=== PATIENT | female | born 1945 | race Caucasian/White ===

== ENCOUNTER → 2016-05-08 | Outpatient (CLI) | payer BC ==
[~2016-05-08] MED LIST: ASPI325T39 PO; CALC500C70 PO; CYAN100020 PO; ESTR0.3T PO; MISCCAP80; MISCTAB88 PO; MULT-506 PO; OMEG10007 PO; PSYL55.43 PO; [UNRECOGNIZED DRUG - OTHER] PO
[2016-05-08 12:34] LABS: ALT/SGPT 28 U/L (12-78); BLOOD UREA NITROGEN 10 mg/dl (7-18); BUN/CREATININE RATIO 12.6 (10-20); CARBON DIOXIDE 27 mmol/L (21-32); CHLORIDE 106 mmol/L (98-107); CHOLESTEROL 233 mg/dl (0-200); CREATININE 0.81 mg/dl (0.60-1.20); GLUCOSE 86 mg/dl (70-99); POTASSIUM 3.9 mmol/L (3.5-5.1); SODIUM 142 mmol/L (136-145)
[2016-05-08 12:37] LABS: ALKALINE PHOSPHATASE 71 U/L (45-117); AST/SGOT 21 U/L (15-37); HDL CHOLESTEROL 78 mg/dl; LDL CHOLESTEROL CALCULATED 129 mg/dl; TRIGLYCERIDES 132 mg/dl (0-150); VERY LOW DENSITY LIPOPROT CALC 26 mg/dl
== END ==
LOC: C.LAB 11:27
PROVIDERS: ATTEND Family Medicine
DX: E78.5 Hyperlipidemia, unspecified (principal)

== ENCOUNTER → 2016-06-11 | Outpatient (CLI) | payer BC ==
--- NOTE | 2016-06-11 15:43 | DIAGNOSTIC IMAGING REPORT ---
CHEST 2 VIEWS ROUTINE CLINICAL HISTORY: Cough. COMPARISON STUDY: Rib series November 08, 2010. FINDINGS: Lung volumes are normal. Lungs are clear. There is no pneumothorax or pleural effusion. Pulmonary vascularity is normal. Cardiac size is normal. Mediastinal contours are normal. IMPRESSION: No acute cardiopulmonary findings. Electronically signed by: Ras Olivas M.D. 06/11/2016 3:41 PM Dictated Date/Time: 06/11/2016 3:40 PM
[2016-06-11 16:32] LABS: BASO % 0.8 %; BASO ABS # 0.06 K/uL (0-0.2); COMPLETE YES; HEMATOCRIT 44.2 % (37-47); IG% 0.1 %; LYMPH ABS # 2.65 K/uL (1.2-3.4); MEAN CORPUSCULAR HEMOGLOBIN 31.1 pg (25-34); MEAN CORPUSCULAR HGB CONC 35.3 g/dl (32-36); MEAN PLATELET VOLUME 8.9 fL (7.4-10.4); MONO % 6.5 %; NEUT % 52.6 %; PLATELET COUNT 236 K/uL (130-400); RED BLOOD COUNT 5.02 M/uL (4.2-5.4); WHITE BLOOD COUNT 7.58 K/uL (4.8-10.8)
== END | disposition home or self-care (01) ==
LOC: C.LAB1850 15:28
PROVIDERS: ATTEND Nurse Practitioner Family
DX: R05 Cough (principal)

== ENCOUNTER → 2016-06-14 | Outpatient (CLI) | payer BC | END | disposition home or self-care (01) | LOC: C.MAMM 10:15 | PROVIDERS: ATTEND Family Medicine | DX: M81.0 Age-related osteoporosis without current pathological fracture (principal); M85.851 Other specified disorders of bone density and structure, right thigh; M85.852 Other specified disorders of bone density and structure, left thigh ==

== ENCOUNTER → 2016-10-20 | Outpatient (CLI) | payer BC ==
--- NOTE | 2016-10-21 13:57 | MAMMOGRAPHY REPORT ---
BILATERAL DIGITAL SCREENING MAMMOGRAM TOMOSYNTHESIS WITH CAD: 10/20/2016 CLINICAL HISTORY: Routine screening. Patient has no complaints. TECHNIQUE: Breast tomosynthesis in addition to standard 2D mammography was performed. Current study was also evaluated with a Computer Aided Detection (CAD) system. COMPARISON: Comparison is made to exams dated: 10/20/2015 mammogram, 10/16/2014 mammogram, 10/15/2013 m ammogram, 05/23/2013 mammogram, 10/11/2012 mammogram - [facility], and 10/11/2011 mamm ogram. BREAST COMPOSITION: The tissue of both breasts is heterogeneously dense, which may obscure small mas ses. FINDINGS: There are benign calcifications scattered throughout both breasts. Stable asymmetry in the lateral left breast on the CC view. No new suspicious mass, architectural distortion or cluster of microcalcifications is seen. IMPRESSION: ACR BI-RADS CATEGORY 1: NEGATIVE There is no mammographic evidence of malignancy. A 1 year screening mammogram is recommended. The pa tient will receive written notification of the results. Approximately 10% of breast cancers are not detected with mammography. A negative mammographic report should not delay biopsy if a clinically suggestive mass is present. Pratibha Branch M.D. ay/:10/20/2016 16:20:06 [employer] Salesperson: Corina PRUITT)([place])([place]), [facility] letter sent: Normal 1/2 BI-RADS Code: ACR BI-RADS Category 1: Negative
== END | disposition home or self-care (01) ==
LOC: C.MAMM 10:50
PROVIDERS: ATTEND Surgery
DX: Z12.31 Encounter for screening mammogram for malignant neoplasm of breast (principal)

== ENCOUNTER → 2016-11-25 | Outpatient (CLI) | payer BC ==
[2016-11-25 12:17] LABS: HEMATOCRIT 44.7 % (37-47); MEAN CORPUSCULAR HEMOGLOBIN 30.3 pg (25-34); MEAN PLATELET VOLUME 9.2 fL (7.4-10.4); PLATELET COUNT 233 K/uL (130-400); RED BLOOD COUNT 5.02 M/uL (4.2-5.4); WHITE BLOOD COUNT 5.17 K/uL (4.8-10.8)
[2016-11-25 13:02] LABS: ALT/SGPT 29 U/L (12-78); AST/SGOT 19 U/L (15-37); BLOOD UREA NITROGEN 11 mg/dl (7-18); BUN/CREATININE RATIO 13.3 (10-20); CALCIUM 9.1 mg/dl (8.5-10.1); CARBON DIOXIDE 28 mmol/L (21-32); CHLORIDE 106 mmol/L (98-107); CREATININE 0.85 mg/dl (0.60-1.20); GLUCOSE 85 mg/dl (70-99); POTASSIUM 3.9 mmol/L (3.5-5.1); SODIUM 140 mmol/L (136-145)
[2016-11-25 13:05] LABS: ALKALINE PHOSPHATASE 61 U/L (45-117); CHOLESTEROL 233 mg/dl (0-200); CHOLESTEROL/HDL RATIO 3.2; HDL CHOLESTEROL 72 mg/dl; LDL CHOLESTEROL CALCULATED 133 mg/dl; TRIGLYCERIDES 142 mg/dl (0-150); VERY LOW DENSITY LIPOPROT CALC 28 mg/dl
== END | disposition home or self-care (01) ==
LOC: C.LABPBG 08:47
PROVIDERS: ATTEND Family Medicine
DX: Z00.00 Encounter for general adult medical examination without abnormal findings (principal); M81.0 Age-related osteoporosis without current pathological fracture; E78.5 Hyperlipidemia, unspecified; N81.6 Rectocele

== ENCOUNTER → 2017-02-01 | Outpatient (CLI) | payer BC ==
--- NOTE | 2017-02-01 15:58 | DIAGNOSTIC IMAGING REPORT ---
L-SPINE MIN 4 VIEWS ROUTINE HISTORY: Pain M85.80 [id number] Acute low back [id number] COMPARISON: None. FINDINGS: There is no fracture. Grade 1 anterolisthesis of L4 and L5. Moderate degenerative change of the low lumbar intervertebral disc spaces. No evidence for an acute compression deformity. IMPRESSION: Moderate degenerative change as described. Mild osteopenia. No acute process. The above report was generated using voice recognition software. It may contain grammatical, syntax or spelling errors. Electronically signed by: Luis Eduardo Son M.D. 02/01/2017 3:56 PM Dictated Date/Time: 02/01/2017 3:55 PM
== END | disposition home or self-care (01) ==
LOC: C.RAD 15:20
PROVIDERS: ATTEND Internal Medicine Rheumatology
DX: M54.5 Low back pain (principal); M85.80 Other specified disorders of bone density and structure, unspecified site

== ENCOUNTER 2017-03-26 12:44 | Emergency (ER) | payer BC ==
[~2017-03-26] VITALS: Ht 162.6 cm; Wt 69.2 kg
[2017-03-26 12:48] VITALS: TEMP 36.5; Ht 162.6 cm; Wt 69.2 kg
[2017-03-26 13:44] LABS: INFLUENZA B ANTIGEN Neg for Influ B (NEG)
[2017-03-26] MEDS ORDERED: IBAN150T7 PO (13:46)
[2017-03-26] MEDS ORDERED: PSYL0.524 PO (13:46)
[2017-03-26] MEDS ORDERED: ASPCH81X PO (13:46)
--- NOTE | 2017-03-26 13:48 | DIAGNOSTIC IMAGING REPORT ---
CHEST ONE VIEW PORTABLE CLINICAL HISTORY: FLU LIKE SYMPTOMS COMPARISON STUDY: Chest radiograph June 11, 2016. FINDINGS: Lung volumes are normal. Lungs are clear. There is no pneumothorax or pleural effusion. Cardiac size is normal. Mediastinal contours are normal. There is no evidence for pulmonary edema. IMPRESSION: No acute cardiopulmonary findings. Electronically signed by: Ras Olivas M.D. 03/26/2017 1:46 PM Dictated Date/Time: 03/26/2017 1:46 PM
[2017-03-26] MEDS ORDERED: MISCTAB26 PO (13:54)
[2017-03-26 14:47] VITALS: BP 117/74; PULSE 65; O2SAT 96
--- NOTE | 2017-03-26 14:50 | EMERGENCY ROOM VISIT NOTE ---
History Report prepared by Dann: Fabricio Garcia Under the Supervision of: Dr. Yan Hook M.D. First contact with patient: 13:06 Chief Complaint: SORETHROAT Stated Complaint: SORE THROAT,FEELS WEIRD,FUZZY FEELING History of Present Illness The patient is a 71 year old female who presents to the Emergency Room with complaints of an intermittent sorethroat that began several days ago. She notes that she is allergic to the influenza vaccine and has not received it. Eight days ago, the patient's symptoms began with rhinorrhea. They then progressed into her sorethroat with an increase to her baseline cough. Recently, her head has felt "fuzzy" and she has been increasingly tired. Yesterday she had a small amount of diarrhea to her bowel movement, but nothing astonishing. She took some NyQuil last night before she went to bed secondary to her having chills and felt better when she woke up. However, when she began to move around, her head began to feel fuzzy and she returned to her fatigued state. She denies any sick contacts. Pt denies LOC, headache, fevers, diaphoresis, visual changes, neck pain, chest pain, breathing difficulties, nausea, vomiting, abdominal pain , back pain, melena, hematochezia, urinary symptoms, numbness, weakness, lymphadenopathy, rash, or other complaints. Source of History: patient Onset: several days ago Position: throat Symptom Intensity: mild Quality: ache Timing: intermittent Associated Symptoms: + chills, + cough, + diarrhea, + fatigue Review of Systems See HPI for pertinent positives and negatives. A total of ten systems were reviewed and were otherwise negative. Past Medical & Surgical Medical Problems: (1) Appendectomy (2) Bronchitis (3) Hysterectomy (4) yeast infection Family History Omitted secondary to the patient's age. Social History Smoking Status: Never Smoker Alcohol Use: occasionally Marital Status: Housing Status: lives with family Occupation Status: employed Current/Historical Medications Scheduled Aspirin (Aspirin Chewable), 81 MG PO DAILY Calcium/Vitamin D (Os-Jimmy 500 Plus D), 1 TAB PO BID Cyanocobalamin (Vitamin B12), 1,000 MG PO DAILY Fish Oil (Dupont-3), 1 CAP PO TID Ibandronate Sodium (Ibandronate Sodium), 150 MG PO MONTHLY Misc Natural Products (Osteo Bi-Flex Triple Stre), 1 TAB PO DAILY Misc Natural Products (Ginkgo Biloba), 1 TAB PO BID Multivitamin (Multivitamin), 1 TAB PO DAILY Probiotic Product (Probiotic), 1 CAP DAILY Psyllium (Metamucil), 1 TBS PO BID Allergies Coded Allergies: Ciprofloxacin (Verified Allergy, Unknown, Liver issues, 12/01/13) Doxycycline (Verified Allergy, Unknown, UNK, 12/01/13) Loratadine (Verified Allergy, Unknown, UNK, 03/26/17) Nitrofurantoin (Verified Allergy, Unknown, SHORTNESS OF BREATH, COUGH, CHEST TIGHTNESS, 12/01/13) Tetracycline (Verified Allergy, Unknown, UNSURE, 03/26/17) Theophylline (Verified Allergy, Unknown, DROWSINESS, 03/26/17) Mometasone (Verified Adverse Reaction, Mild, NOSE BLEEDS, 12/01/13) Metronidazole (Verified Adverse Reaction, Unknown, UNK, 12/01/13) STATED " IT COATED MY TONGUE LAST COUPLE DAYS." Statins (Verified Adverse Reaction, Unknown, tingling hands, 12/01/13) Physical Exam Vital Signs Date Time Temp Pulse Resp B/P (MAP) Pulse Ox O2 Delivery O2 Flow Rate FiO2 03/26/17 14:47 65 18 117/74 96 Room Air 03/26/17 13:16 98 Room Air 03/26/17 12:48 36.5 88 18 135/81 96 Room Air Physical Exam GENERAL: Awake, alert, tired-appearing, in no distress HENT: Normocephalic, atraumatic. Oropharynx unremarkable. EYES: Normal conjunctiva. Sclera non-icteric. NECK: Supple. No nuchal rigidity. FROM. No JVD. RESPIRATORY: Clear to auscultation. CARDIAC: Regular rate, normal rhythm. Extremities warm and well perfused. Pulses equal. ABDOMEN: Soft, non-distended. No tenderness to palpation. No rebound or guarding. No masses. RECTAL: Deferred. MUSCULOSKELETAL: Chest examination reveals no tenderness. The back is symmetrical on inspection without obvious abnormality. There is no CVA tenderness to palpation. No joint edema. LOWER EXTREMITIES: Calves are equal size bilaterally and non-tender. No edema. No discoloration. NEURO: Normal sensorium. No sensory or motor deficits noted. SKIN: No rash or jaundice noted. Medical Decision & Procedures ER Provider Diagnostic Interpretation: Radiology results as stated below per my review and radiologist interpretation: CHEST ONE VIEW PORTABLE CLINICAL HISTORY: FLU LIKE SYMPTOMS COMPARISON STUDY: Chest radiograph June 11, 2016. FINDINGS: Lung volumes are normal. Lungs are clear. There is no pneumothorax or pleural effusion. Cardiac size is normal. Mediastinal contours are normal. There is no evidence for pulmonary edema. IMPRESSION: No acute cardiopulmonary findings. Electronically signed by: Ras Olivas M.D. 03/26/2017 1:46 PM Dictated Date/Time: 03/26/2017 1:46 PM Laboratory Results Test 03/26/17 12:55 03/26/17 13:45 Influenza Type A Antigen Neg for Influ A (NEG) Influenza Type B Antigen Neg for Influ B (NEG) Urine Color YELLOW Urine Appearance CLEAR (CLEAR) Urine pH 6.5 (4.5-7.5) Urine Specific Dennison 1.008 (1.000-1.030) Urine Protein NEG (NEG) Urine Glucose (UA) NEG (NEG) Urine Ketones NEG (NEG) Urine Occult Blood NEG (NEG) Urine Nitrite NEG (NEG) Urine Bilirubin NEG (NEG) Urine Urobilinogen NEG (NEG) Urine Leukocyte Esterase SMALL (NEG) Urine WBC (Auto) /hpf (0-5) Urine RBC (Auto) /hpf (0-4) Urine Hyaline Casts (Auto) /lpf (0-5) Urine Epithelial Cells (Auto) /lpf (0-5) Urine Bacteria (Auto) (NEG) Urine RBC 0-4 /hpf (0-4) Urine WBC 1-5 /hpf (0-5) Urine Epithelial Cells 0-5 /lpf (0-5) Urine Bacteria NEG (NEG) Laboratory results reviewed by la ED Course 1306: The patient was evaluated in room B6. A complete history and physical exam was performed. 1500: I reevaluated the patient. Discussed results and discharge instructions: She verbalized understanding and agreement. The patient is ready for discharge. Medical Decision Prior records/ancillary studies reviewed and summarized above. Nursing notes reviewed and agree them. Additional history obtained from . The patient's history was concerning for flu symptoms. Differential diagnosis: Etiologies such as influenza, UTI, metabolic, infection, electrolyte abnormalities, cardiac sources, intracerebral event, neurologic, as well as others were entertained. Physical examination: As above. Minor flulike symptoms present. ER treatment provided: No medication given. On reassessment the patient felt better. Diagnostics interpretation by me: The labs revealed testing negative. Urinalysis as above. Negative. Imaging studies: Chest x-ray negative. The patient has symptoms of a URI. Flu testing is negative. She had no real chest or abdominal symptoms otherwise. No meningeal findings. Conservative management with close outpatient follow-up was recommended. If any symptoms escalate or she feels worse she was advised to come back to the emergency department for reevaluation. By the evaluation outlined above emergent etiologies such as infection, other abnormalities, cardiac sources, intracerebral event, toxicologic, neurologic, abnormalities blood glucose, metabolic, as well as others were deemed relatively unlikely. The she and were informed about the findings as listed above. All questions were answered and they were pleased with the treatment. Return instructions were outlined and the patient was discharged in stable condition. Outpatient prescription management: None Referral: The patient was referred back to her primary care physician for follow-up in 2 to 3 days for a recheck of the current condition. Medication Reconcilliation Current Medication List: was personally reviewed by me Blood Pressure Screening Patient's blood pressure: Normal blood pressure Blood pressure disposition: Did not require urgent referral Impression Primary Impression: Influenza-like illness Scribe Attestation The scribe's documentation has been prepared under my direction and personally reviewed by me in its entirety. I confirm that the note above accurately reflects all work, treatment, procedures, and medical decision making performed by me. Departure Information Dispostion Home / Self-Care Referrals Maura Capellan DO (PCP) Forms HOME CARE DOCUMENTATION FORM, IMPORTANT VISIT INFORMATION Patient Instructions My [facility] Additional Instructions Acetaminophen(Tylenol) may be used for fever or pain. Use 1000mg every six hours as needed. Avoid using more than 4000mg in a 24 hour period. (AND/OR) Ibuprofen(Motrin, Advil) may be used for fever or pain. Use 600mg every six hours as needed. Take with food. Avoid using more than 2400mg in a 24 hour period. Do not use 2400mg per day for more than three consecutive days without physician direction. Prolonged inappropriate use can lead to stomach upset or ulcers. Afrin nasal spray: 2-3 sprays to each nostril twice daily as needed for congestion. Do not use for more than 3-4 days because it can lead to worsening rebound congestion. Rest and drink plenty of fluids. Controlling your fever with Tylenol and Ibuprofen as above will make you feel better. Wash your hands after nose blowing, sneezing, or coughing. Most germs are spread through contact, therefore improper hygiene may result in your close contacts and loved ones becoming ill just like you. Return to the ER for severe headache, neck stiffness, chest pain, difficulty breathing, fevers, vomiting, worsening of your condition, or as needed. Follow up with your primary physician this week for a recheck of your current condition.
== END 2017-03-26 15:08 | disposition home or self-care (01) ==
LOC: C.EDB 12:46
DX: J02.9 Acute pharyngitis, unspecified (principal); J34.89 Other specified disorders of nose and nasal sinuses; R05 Cough; R19.7 Diarrhea, unspecified; R53.83 Other fatigue; Z90.710 Acquired absence of both cervix and uterus; Z79.82 Long term (current) use of aspirin

== ENCOUNTER → 2017-06-01 | Outpatient (CLI) | payer BC ==
[~2017-06-01] MED LIST changes: +ASPCH81X PO; -ASPI325T39 PO; -ESTR0.3T PO; +IBAN150T7 PO; +MISCTAB26 PO; +PSYL0.524 PO; -PSYL55.43 PO; -[UNRECOGNIZED DRUG - OTHER] PO
[2017-06-01 13:55] LABS: BLOOD UREA NITROGEN 10 mg/dl (7-18); CALCIUM 8.8 mg/dl (8.5-10.1); CARBON DIOXIDE 27 mmol/L (21-32); CREATININE 0.86 mg/dl (0.60-1.20); GLUCOSE 86 mg/dl (70-99); POTASSIUM 3.5 mmol/L (3.5-5.1); SODIUM 140 mmol/L (136-145)
[2017-06-01 13:58] LABS: CHOLESTEROL 171 mg/dl (0-200); LDL CHOLESTEROL CALCULATED 95 mg/dl
== END | disposition home or self-care (01) ==
LOC: C.LABPBG 10:16
PROVIDERS: ATTEND Family Medicine
DX: Z00.00 Encounter for general adult medical examination without abnormal findings (principal); E78.5 Hyperlipidemia, unspecified

== ENCOUNTER → 2017-06-16 | Outpatient (CLI) | payer BC | END | disposition home or self-care (01) | LOC: C.LABSPEC 18:28 | PROVIDERS: ATTEND Family Medicine | DX: R49.0 Dysphonia (principal); J02.9 Acute pharyngitis, unspecified ==

== ENCOUNTER → 2017-10-21 | Outpatient (CLI) | payer BC ==
--- NOTE | 2017-10-24 13:55 | MAMMOGRAPHY REPORT ---
BILATERAL DIGITAL SCREENING MAMMOGRAM TOMOSYNTHESIS WITH CAD: 10/21/2017 CLINICAL HISTORY: Routine screening. Patient has no complaints. TECHNIQUE: Breast tomosynthesis in addition to standard 2D mammography was performed. Current study w as also evaluated with a Computer Aided Detection (CAD) system. COMPARISON: Comparison is made to exams dated: 10/20/2016 mammogram, 10/20/2015 mammogram, 10/16/2014 m ammogram, 10/15/2013 mammogram, 05/23/2013 ultrasound, and 10/11/2012 mammogram - [facility]. BREAST COMPOSITION: The tissue of both breasts is heterogeneously dense, which may obscure small mass es. FINDINGS: No suspicious masses, calcifications, or areas of architectural distortion are noted in either breast . There has been no significant interval change compared to prior exams. Bilateral asymmetries and s cattered bilateral benign-appearing calcifications are not significantly changed. IMPRESSION: ACR BI-RADS CATEGORY 2: BENIGN There is no mammographic evidence of malignancy. A 1 year screening mammogram is recommended.( 019) The patient will receive written notification of the results. Some breast cancers are not detected with mammography. A negative mammographic report should not gato y biopsy if a clinically suggestive mass is present. Joanne Ramirez M.D. ah/:10/21/2017 16:27:39 [employer] Assistant: RT Tristan(Hailey)(M), [facility] letter sent: Normal 1/2 BI-RADS Code: ACR BI-RADS Category 2: Benign
== END | disposition home or self-care (01) ==
LOC: C.MAMM 11:48
PROVIDERS: ATTEND Obstetrics & Gynecology
DX: Z12.31 Encounter for screening mammogram for malignant neoplasm of breast (principal); J02.9 Acute pharyngitis, unspecified; R49.0 Dysphonia

== ENCOUNTER 2024-02-26 12:14 | Inpatient (IN) ==
[2024-02-26 14:03] LABS: Albumin Globulin Ratio 1.4 (0.9-2); BUN Creatinine Ratio 11.9 (10-20); Bilirubin,Total 1.2 mg/dl (0.2-1.0); Calcium 8.9 mg/dl (8.6-10.3); Creatinine Clr Calc Pharmacy 75.3 ml/min; Globulin 2.8 gm/dl (2.5-4.0); Total Protein 6.8 gm/dl (6.0-8.3)
[2024-02-26 14:10] LABS: Troponin I High Sensitivity 6.6 pg/ml (0-14)
[2024-02-26 14:20] LABS: Thyroid Stimulating Hormone 3.361 uIu/ml (0.300-4.500)
--- NOTE | 2024-02-26 14:35 | Emergency Department Note ---
ED Visit Note I was consulted in regards to the patient's presentation and plan of care by the Advanced Practice Provider. I engaged in a detailed/meaningful discussion with the Advanced Practice Provider in regards to this patient's workup and plan of care. I performed a substantiative portion of the medical decision making following discussion with the Advanced Practice Provider. Please see the Advanced Practice Provider's separate documentation for full details of the patient's visit. I agree with the assessment and plan of LOS Fajardo, DO Emergency Medicine .
[2024-02-26 14:42] LABS: Basophils # (auto) 0.05 K/uL (0.00-0.20); Basophils % (auto) 0.8 %; Eosinophils # (auto) 0.06 K/uL (0.00-0.50); Immature Granulocytes # (auto) 0.02 K/uL (0.01-0.20); Immature Granulocytes % (auto) 0.3 %; Lymphocytes # (auto) 1.38 K/uL (1.20-3.40); Mean Corpuscular Hemoglobin 30.6 pg (25.0-34.0); Mean Corpuscular Hgb Conc 36.6 g/dL (32.0-36.0); Mean Corpuscular Volume 83.7 fL (80.0-100.0); Neutrophils # (auto) 4.25 K/uL (1.40-6.50); Neutrophils % (auto) 67.9 %; Platelet Count 245 K/uL (130-400); RDW Coefficient of Variation 11.5 % (11.5-14.5); RDW Standard Deviation 34.8 fL (36.4-46.3); White Blood Count 6.26 K/ul (4.8-10.8)
--- NOTE | 2024-02-26 15:05 | XRay Report ---
EXAM: Radiograph of the Chest 1 View INDICATION: Dizziness. TECHNIQUE: Frontal view of the chest. COMPARISON: 02/03/2022 FINDINGS: Lungs and pleural spaces: No consolidation or pulmonary edema. No pleural effusion or pneumothorax. Heart: Shape and configuration within normal limits allowing for technique. Mediastinum: Normal contour. Bones/joints: Degenerative changes noted throughout the spine. No acute osseous abnormality seen. Soft tissues: No abnormality noted. No radiopaque foreign body noted. Upper abdomen: No abnormality noted. IMPRESSION: No acute change noted. ACT 112: Negative or not required by law. Electronically signed by Sinai Giles 02-26-2024 3:03 PM
[2024-02-26] MEDS ORDERED: ALBUTEROL HFA 8 GM INHALER INH PRN (16:34)
--- NOTE | 2024-02-26 16:39 | History & Physical Report ---
Date of Service February 26, 2024 Assessment & Plan (1) Hyponatremia: (2) Osteoporosis: (3) Diverticulosis: (4) Disc degeneration, lumbar: Plan #hyponatremia: cause of admission despite history of previous labs showing normal sodium. symptoms at the 48 hour magdalena likely chronic, likely secondary to thiazide vs Prolia use will give sodium tablet x1 as repeat sodium is remaining at 125. will repeat test at midnight and in AM. Right hip pain: no injury, doubt fracture able to ambulate. will order x rsay of her right hip likely acute flair of chronic condition order PT dvt: lovenox History of Present Illness Chief Complaint: fatigue Primary Care Provider: Maura Capellan, DO 78 yo female with PMH of HLD, Fatty Liver, Osteoporosis, LDD, Chronic constipation and Lichen Sclerosis presents to the hospital with symptoms of fatigue, dizziness and right hip pain. Patient reports these symptoms all started on Tuesday in the morning. She does not quite remember the specific time, she just noticed the pain first. Then she felt dizzy and fatigued. Right hip pain radiates down her leg, sharp, moderate intensity. She denies any trauma, injury or sick contacts. She states her dizziness is intermittent and can occur at any time. She states since Tuesday she has not been eating as much, with a low appetite and low energy, casuing her to stay in bed. Patient reports she took the first dose Allergies Allergy/AdvReac Type Severity Reaction Status Date / Time ciprofloxacin Allergy Unknown Liver Verified 02/26/24 16:17 issues doxycycline Allergy Unknown UNK Verified 02/26/24 16:17 loratadine Allergy Unknown UNK Verified 02/26/24 16:17 nitrofurantoin Allergy Unknown SHORTNESS Verified 02/26/24 16:17 OF BREATH, COUGH, CHEST TIGHTNESS tetracycline Allergy Unknown UNSURE Verified 02/26/24 16:17 theophylline Allergy Unknown DROWSINESS Verified 02/26/24 16:17 Influenza Virus Vaccines AdvReac Mild red nose, Verified 02/26/24 16:17 crusty nose mometasone furoate AdvReac Mild NOSE BLEEDS Verified 02/26/24 16:17 metronidazole AdvReac Unknown UNK Verified 02/26/24 16:17 Xqktkqy-YKS-TsS Reductase AdvReac Unknown tingling Verified 02/26/24 16:17 Inhibitor hands [Zqjtobw-Ikx-Ocf Reductase Inhibitor] Benzonatate CAPS Allergy Unknown thrush Uncoded 02/26/24 16:17 [facility] Allergy Relief TABS AdvReac Unknown Unknown Uncoded 02/26/24 16:17 Nasonex SUSP AdvReac Unknown bLOODY NOSE Uncoded 02/26/24 16:17 Home Medications Medication Instructions Recorded Confirmed Type calcium 500 mg (as 1 tab PO BID 12/15/17 02/26/24 History carbonate)-vitamin D3 5 mcg (200 unit) tablet (Os-Jimmy 500 + D3) cyanocobalamin (vitamin B-12) 1,000 mcg PO QPM 12/15/17 02/26/24 History 1,000 mcg tablet (Vitamin B-12) glucosamine 750 aq-cfnetdqpkqd-qnw 1 tab PO QAM 12/15/17 02/26/24 History no1 644 mg-C 30 mg-jeannette 1 mg tablet (Osteo Bi-Flex Triple Strength) uhmbqjiw-wsgc-ibn-folic acid 18 1 tab PO QAM 12/15/17 02/26/24 History mg-0.4 mg tablet (One Daily For Women) omega 2-pwe-yht-fish oil 1,000 mg 1 cap PO TID 12/15/17 02/26/24 History (120 mg-180 mg) capsule (Fish Oil) Lactobacillus 1 cap PO QAM 03/13/19 02/26/24 History acidophilus-Bifidobac.animalis 2 billion cell capsule (One-A-Day Trubiotics) psyllium husk 3.4 gram/5.4 gram 2 tsp PO BID 03/13/19 02/26/24 History oral powder (Metamucil) albuterol sulfate 90 mcg/actuation 2 puff inhalation Q6H PRN 11/26/21 02/26/24 Rx aerosol inhaler shortness of breath or wheezing #6.7 grams inhalational spacing device #1 box 12/10/21 12/20/23 Rx (Aerochamber MV spacer) fexofenadine 180 mg tablet 60 mg PO QAM 06/18/22 02/26/24 History ([facility]) naproxen sodium 220 mg capsule 220 mg PO BID PRN Pain 06/18/22 02/26/24 History (Aleve) triamcinolone acetonide 0.025 % 1 applic topical DAILY PRN Skin 06/18/22 02/26/24 History topical ointment Irritation denosumab 60 mg/mL subcutaneous 60 mg subcut .Q6 months #1 mL 01/28/23 02/26/24 Rx syringe (Prolia) azelastine 137 mcg (0.1 %) nasal See Rx Instructions .Route 06/08/23 02/26/24 Rx spray .COMPLEX #90 mL chlorthalidone 25 mg tablet 12.5 mg (1/2 x 25 mg) PO DAILY #45 10/05/23 02/26/24 Rx tabs estradiol 0.01% (0.1 mg/gram) 1 g vaginal .COMPLEX #42.5 grams 02/13/24 02/26/24 Rx vaginal cream montelukast 10 mg tablet See Rx Instructions .Route 02/16/24 02/26/24 Rx .COMPLEX #90 tabs mometasone 220 mcg/actuation(120 See Rx Instructions .Route 02/17/24 02/26/24 Rx doses)breath activated powder .COMPLEX #1 insert inhaler (Asmanex Twisthaler) Past Med/Surg History Problem List Hyponatremia Osteoporosis Hypercalciuria Carpal tunnel syndrome of right wrist Pessary maintenance Rectocele Allergic rhinitis Chronic constipation Disc degeneration, lumbar Diverticulosis Extrinsic asthma Fatty infiltration of liver Hyperlipidemia Irritable bowel syndrome (IBS) Lichen sclerosus et atrophicus Osteoarthritis of lumbar spine Postmenopausal osteoporosis Prolapse 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 Vitamin D deficiency Medical History Back pain Fatty liver disease, nonalcoholic Prolapse of intestine Vaginal pessary present History of hemorrhoids Osteoarthritis Endometriosis Diverticular disease Dust allergy Seasonal allergies Osteopenia Tinnitus Surgical History H/O thumb surgery (12/14/23) R trigger thumb release History of carpal tunnel surgery of right wrist (02/2023) History of carpal tunnel surgery of left wrist History of bilateral cataract extraction History of colonoscopy History of toe surgery right foot, big toe History of surgery lysis of adhesions on abdomen from hyster History of total abdominal hysterectomy and bilateral salpingo-oophorectomy History of appendectomy History of tooth extraction Family History Uncle Myocardial infarction paternal Mother Osteoporosis Heart disease Father Raynauds disease Scleroderma Sister Sjogren's syndrome Other No family history of adverse response to anesthesia Denies family history of Ovarian cancer Prostate cancer Breast cancer Colorectal cancer Social History Smoking Status: Never smoker Tobacco Type: Cigarettes Age Started Using Tobacco: 19; Age Quit Using Tobacco: 31; packs per day: 0.25; Cigarettes Per Day: 0.25PPD x 12 YEARS; Second Hand Exposure: No; Do You Dip or Chew Tobacco: No; Tobacco Cessation Education Requested by Patient: No Hx Alcohol Use: Yes Alcohol type: wine Alcohol Intake Frequency: 4 or More x per/Week Hx Substance Use: No Preferred Language: Maldivian Communication Ability: Effective Visual Impairment: No Limitations Hearing Ability: Hard of Hearing Social Insurance Administrator Required: No Beliefs That Will Affect Care: None marital status: Current Living Situation: Spouse current occupational status: retired Other Information That Helps Us Care for You: No Feels Safe at Home: Yes Safety Concerns: Feels Safe At This Time Childhood Exposure to Second-Hand Smoke: No Diet: regular Diet Comment: regular caffeine: Yes (coffee) during the past year weight has: remained stable Dental Care, Regularly: Yes Physical Activity Frequency: 3-4 Times per Week Seatbelt Use: always Sunscreen Use: Yes Assistive Devices: Glasses Review of Systems Constitutional: no fever Eyes: no blind spots and no discharge Ear, Nose, Mouth, Throat: no ear pain Respiratory: no cough Cardiovascular: no chest pain Gastrointestinal: no abdominal pain Genitourinary: no dysuria Musculoskeletal: + back pain Integumentary: no rash Neurologic: + unsteadiness and + generalized weaknes s Psychiatric: no behavioral changes Endocrine: + fatigue Hematologic / Lymphatic: no easy bleeding Allergy / Immunological: no GI upset with certain foods Physical Exam Constitutional: WD/WN, vitals as above Eyes: PERRL, conjunctivae normal, anicteric sclerae ENMT: external ear and nose normal, oropharynx normal Neck: trachea midline, no thyromegaly Respiratory: normal respiratory effort, lungs clear to auscultation Cardiovascular: RRR, no murmur, no edema Gastrointestinal (Abdomen): normal bowel sounds, soft, nontender, no hepatosplenomegaly Musculoskeletal: Extremities: extremities normal to inspection (negative log roll) Skin: no rashes, warm and dry Neurologic: PERRL, EOMI, accommodation nl, no face palsy, no dysarthria Psychiatric: A+Ox3, euthymic affect Lymphatic: no cervical or axillary lymphadenopathy Results & Data Results & Data Vital Signs (Past 12 Hours) Vital Signs Temp Pulse Pulse Resp BP BP Pulse Ox 02/26/24 15:32 75 17 96 02/26/24 15:30 75 17 140/87 96 02/26/24 15:30 140/87 02/26/24 15:00 76 17 116/90 95 02/26/24 14:30 74 02/26/24 14:11 75 15 135/79 95 02/26/24 12:36 36.5 C 88 20 128/81 93 O2 Del Method 02/26/24 15:32 02/26/24 15:30 Room Air 02/26/24 15:30 02/26/24 15:00 Room Air 02/26/24 14:30 02/26/24 14:11 Room Air 02/26/24 12:36 Room Air PG Care Time/CCT Total # of Minutes Spent Total Time Spent with Patient: Total time spent is greater than 50% in coordination of care (as documented) at patient's floor/unit and/or counseling patient: Coding Level of Care Code 31528 INT INP/OBS CARE 375MIN Diagnoses Hyponatremia E87.1 Osteoporosis, unspecified osteoporosis type, unspecified pathological fracture presence M81.0 Osteoporosis type: unspecified Presence of current pathological fracture: unspecified Diverticulosis K57.90 Disc degeneration, lumbar M51.36 (2) Osteoporosis Osteoporosis type: unspecified Presence of current pathological fracture: unspecified Qualified Code(s): M81.0 - Age-related osteoporosis without current pathological fracture
[2024-02-26] MEDS: POTASSIUM CHLORIDE CRTAB 20 MEQ TABCR PO STA (16:52)
--- NOTE | 2024-02-26 16:58 | Emergency Department Note ---
History of Present Illness General Chief complaint: Hip Pain Stated complaint: RT HIP AND LEG PAIN, DIZZY, LETHARGIC Time Seen by Provider: 02/26/24 12:53 History of Present Illness Maximum Pain Intensity: 8 This 78-year-old female presents today with her , for evaluation of a multitude of complaints. She notes right "hip" pain that has been present since Tuesday. She also notes dizziness and weakness as well as fatigue that have also been present since Tuesday. The patient received her Prolia injection on in her left deltoid. She states it went fine. She has had them before without issue. She has a history of low back pain that radiates into her right leg, but states her current discomfort is different. It is worse than usual. She denies any trauma. She denies any cold symptoms. No fevers, chills, sweats, nausea, vomiting, diarrhea, abdominal pain, ear pain, or head congestion. No change in vision or speech. No change in her sleep pattern. She has not notified her PCP yet. No additional complaints. Home Medications Medication Instructions Recorded Confirmed Type calcium 500 mg (as 1 tab PO BID 12/15/17 02/26/24 History carbonate)-vitamin D3 5 mcg (200 unit) tablet (Os-Jimmy 500 + D3) cyanocobalamin (vitamin B-12) 1,000 mcg PO QPM 12/15/17 02/26/24 History 1,000 mcg tablet (Vitamin B-12) glucosamine 750 bx-claldndrwev-tgx 1 tab PO QAM 12/15/17 02/26/24 History no1 644 mg-C 30 mg-jeannette 1 mg tablet (Osteo Bi-Flex Triple Strength) kzpauupv-jgtf-kto-folic acid 18 1 tab PO QAM 12/15/17 02/26/24 History mg-0.4 mg tablet (One Daily For Women) omega 7-ilp-bqp-fish oil 1,000 mg 1 cap PO TID 12/15/17 02/26/24 History (120 mg-180 mg) capsule (Fish Oil) Lactobacillus 1 cap PO QAM 03/13/19 02/26/24 History acidophilus-Bifidobac.animalis 2 billion cell capsule (One-A-Day Trubiotics) psyllium husk 3.4 gram/5.4 gram 2 tsp PO BID 03/13/19 02/26/24 History oral powder (Metamucil) albuterol sulfate 90 mcg/actuation 2 puff inhalation Q6H PRN 11/26/21 02/26/24 Rx aerosol inhaler shortness of breath or wheezing #6.7 grams inhalational spacing device #1 box 12/10/21 12/20/23 Rx (Aerochamber MV spacer) fexofenadine 180 mg tablet 60 mg PO QAM 06/18/22 02/26/24 History ([facility]) naproxen sodium 220 mg capsule 220 mg PO BID PRN Pain 06/18/22 02/26/24 History (Aleve) triamcinolone acetonide 0.025 % 1 applic topical DAILY PRN Skin 06/18/22 02/26/24 History topical ointment Irritation denosumab 60 mg/mL subcutaneous 60 mg subcut .Q6 months #1 mL 01/28/23 02/26/24 Rx syringe (Prolia) azelastine 137 mcg (0.1 %) nasal See Rx Instructions .Route 06/08/23 02/26/24 Rx spray .COMPLEX #90 mL estradiol 0.01% (0.1 mg/gram) 1 g vaginal .COMPLEX #42.5 grams 02/13/24 02/26/24 Rx vaginal cream montelukast 10 mg tablet See Rx Instructions .Route 02/16/24 02/26/24 Rx .COMPLEX #90 tabs mometasone 220 mcg/actuation(120 See Rx Instructions .Route 02/17/24 02/26/24 Rx doses)breath activated powder .COMPLEX #1 insert inhaler (Asmanex Twisthaler) Allergies Allergy/AdvReac Type Severity Reaction Status Date / Time ciprofloxacin Allergy Unknown Liver Verified 02/26/24 16:17 issues doxycycline Allergy Unknown UNK Verified 02/26/24 16:17 loratadine Allergy Unknown UNK Verified 02/26/24 16:17 nitrofurantoin Allergy Unknown SHORTNESS Verified 02/26/24 16:17 OF BREATH, COUGH, CHEST TIGHTNESS tetracycline Allergy Unknown UNSURE Verified 02/26/24 16:17 theophylline Allergy Unknown DROWSINESS Verified 02/26/24 16:17 Influenza Virus Vaccines AdvReac Mild red nose, Verified 02/26/24 16:17 crusty nose mometasone furoate AdvReac Mild NOSE BLEEDS Verified 02/26/24 16:17 metronidazole AdvReac Unknown UNK Verified 02/26/24 16:17 Eqjjdss-QNO-IfK Reductase AdvReac Unknown tingling Verified 02/26/24 16:17 Inhibitor hands [Tiyltxo-Ekq-Guk Reductase Inhibitor] Benzonatate CAPS Allergy Unknown thrush Uncoded 02/26/24 16:17 [facility] Allergy Relief TABS AdvReac Unknown Unknown Uncoded 02/26/24 16:17 Nasonex SUSP AdvReac Unknown bLOODY NOSE Uncoded 02/26/24 16:17 Past Med/Surg History Problem List (Updated 02/28/24 @ 18:45 by Ja Ross PA-C) Sacroiliac joint dysfunction of right side (Acute) Chronic right hip pain Acute right hip pain Hyponatremia (Acute) Osteoporosis Hypercalciuria Carpal tunnel syndrome of right wrist Pessary maintenance Rectocele Allergic rhinitis Chronic constipation Disc degeneration, lumbar Diverticulosis Extrinsic asthma Fatty infiltration of liver Hyperlipidemia Irritable bowel syndrome (IBS) Lichen sclerosus et atrophicus Osteoarthritis of lumbar spine Postmenopausal osteoporosis Prolapse 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 Vitamin D deficiency Medical History Back pain Fatty liver disease, nonalcoholic Prolapse of intestine Vaginal pessary present History of hemorrhoids Osteoarthritis Endometriosis Diverticular disease Dust allergy Seasonal allergies Osteopenia Tinnitus Surgical History H/O thumb surgery (12/14/23) R trigger thumb release History of carpal tunnel surgery of right wrist (02/2023) History of carpal tunnel surgery of left wrist History of bilateral cataract extraction History of colonoscopy History of toe surgery right foot, big toe History of surgery lysis of adhesions on abdomen from hyster History of total abdominal hysterectomy and bilateral salpingo-oophorectomy History of appendectomy History of tooth extraction Family History Uncle Myocardial infarction paternal Mother Osteoporosis Heart disease Father Raynauds disease Scleroderma Sister Sjogren's syndrome Other No family history of adverse response to anesthesia Denies family history of Ovarian cancer Prostate cancer Breast cancer Colorectal cancer Social History Smoking Status: Never smoker Tobacco Type: Cigarettes Age Started Using Tobacco: 19; Age Quit Using Tobacco: 31; packs per day: 0.25; Cigarettes Per Day: 0.25PPD x 12 YEARS; Second Hand Exposure: No; Do You Dip or Chew Tobacco: No; Hx Alcohol Use: Yes Alcohol type: wine Alcohol Intake Frequency: 4 or More x per/Week Hx Substance Use: No Preferred Language: Czech Communication Ability: Effective Visual Impairment: No Limitations Hearing Ability: Hard of Hearing Lead Front End Developer Required: No Beliefs That Will Affect Care: None marital status: Current Living Situation: Spouse current occupational status: retired Feels Safe at Home: Yes Childhood Exposure to Second-Hand Smoke: No Diet: regular Diet Comment: regular caffeine: Yes (coffee) during the past year weight has: remained stable Dental Care, Regularly: Yes Physical Activity Frequency: 3-4 Times per Week Seatbelt Use: always Sunscreen Use: Yes Assistive Devices: None Review of Systems A total of 10 systems reviewed and were otherwise negative Physical Exam Vital Signs Vital Signs - 24 hr 02/26/24 12:36 02/26/24 14:11 02/26/24 14:30 Temperature 36.5 C Temperature Source Oral Pulse Rate 88 74 Pulse Rate [Left Apical] 75 Pulse Rate from SpO2 Sensor Respiratory Rate 20 15 Respiratory Effort / Characteristics Non-Labored Spontaneous Respiratory Depth Normal Respiratory Pattern Regular Blood Pressure 128/81 Blood Pressure [Right Arm] 135/79 Blood Pressure Mean 96 Blood Pressure Mean [Right Arm] 97 Blood Pressure Position [Right Arm] Semi-fowlers Pulse Oximetry 93 95 Oxygen Delivery Method Room Air Room Air Sepsis Recent Fever Within 48 Hours No Sepsis New/Unexplained Change in Mental Status N/A Sepsis Action Taken by Nursing No Action Required 02/26/24 15:00 02/26/24 15:30 02/26/24 15:30 Temperature Temperature Source Pulse Rate 76 75 Pulse Rate [Left Apical] Pulse Rate from SpO2 Sensor 77 77 Respiratory Rate 17 17 Respiratory Effort / Characteristics Respiratory Depth Respiratory Pattern Blood Pressure 116/90 140/87 140/87 Blood Pressure [Right Arm] Blood Pressure Mean 104 106 106 Blood Pressure Mean [Right Arm] Blood Pressure Position [Right Arm] Pulse Oximetry 95 96 Oxygen Delivery Method Room Air Room Air Sepsis Recent Fever Within 48 Hours Sepsis New/Unexplained Change in Mental Status Sepsis Action Taken by Nursing 02/26/24 15:32 02/26/24 16:00 02/26/24 16:00 Temperature Temperature Source Pulse Rate 75 84 Pulse Rate [Left Apical] Pulse Rate from SpO2 Sensor 77 85 Respiratory Rate 17 18 Respiratory Effort / Characteristics Respiratory Depth Respiratory Pattern Blood Pressure 130/77 Blood Pressure [Right Arm] Blood Pressure Mean 105 Blood Pressure Mean [Right Arm] Blood Pressure Position [Right Arm] Pulse Oximetry 96 95 Oxygen Delivery Method Sepsis Recent Fever Within 48 Hours Sepsis New/Unexplained Change in Mental Status Sepsis Action Taken by Nursing 02/26/24 16:24 02/26/24 16:30 Temperature Temperature Source Pulse Rate 77 Pulse Rate [Left Apical] Pulse Rate from SpO2 Sensor 77 Respiratory Rate 18 Respiratory Effort / Characteristics Respiratory Depth Respiratory Pattern Blood Pressure 119/74 Blood Pressure [Right Arm] Blood Pressure Mean 82 Blood Pressure Mean [Right Arm] Blood Pressure Position [Right Arm] Pulse Oximetry 94 Oxygen Delivery Method Sepsis Recent Fever Within 48 Hours Sepsis New/Unexplained Change in Mental Status Sepsis Action Taken by Nursing General: Well-developed, well-nourished, elderly white female, in no acute distress. Laying on the bed. Alert and oriented. Somewhat flattened affect. Skin: Warm and dry with good turgor. No rashes. No ecchymosis or erythema. HEENT: Normocephalic atraumatic. Eyes PERRLA, EOMI. No conjunctiva or scleral injection. Ears TMs intact bilaterally with good light reflexes. No erythema or bulging. No hemotympanum. Canals are patent. Nares patent bilaterally without turbinate enlargement. No significant drainage. No epistaxis. Oropharynx without erythema or exudate. Uvula midline, oral mucosa moist. No lesions present. Lymphatics are palpated without anterior or posterior chain enlargement or tenderness. Heart: Heart RRR. No MGR. Peripheral pulses are 2+. Lungs: Lungs are clear to auscultation. No crackles rhonchi or wheezing. Good air movement. The patient is able to take a deep breath. Abdomen: Abdomen was inspected, auscultated, and palpated. Mildly obese. Bowel sounds present x 4. Soft, nontender to palpation. No hepato-splenomegaly. No masses noted. No rebound. Musculoskeletal: Gross motor function of the upper and lower extremities is intact and unremarkable. She has no discomfort with palpation over the anterior flexion crease. There is some sensitivity over the right IT band and greater trochanter. She states this is normal for her. Her worst discomfort is over the right SI joint. She has no pain with palpation over her lumbar spine or paraspinal musculature. No pain with palpation over the left SI joint. Her right sided pain extends into the gluteal origin. No pain over her external rotator attachment. Passive rotation of the right hip causes pain in the SI joint. She has no discomfort with passive or active hip flexion. Neurologic: Gross sensation is intact across both lower extremities by soft touch. Course Administered Medications Discontinued Medications Acetaminophen (Acetaminophen 500 Mg Tab) 1,000 mg PO Q8H PRN PRN Reason: Pain or Fever Stop: 03/27/24 19:36 Last Admin: 02/28/24 06:09 Dose: 1,000 mg Documented By: Admin: 02/27/24 20:26 Dose: 1,000 mg Documented By: Admin: 02/27/24 10:37 Dose: 1,000 mg Documented By: Admin: 02/26/24 20:05 Dose: 1,000 mg Documented By: CASSIE Calcium/Vitamin D (Calcium 600mg + Vit D 400 Iu Tab) 1 tab PO BID JOSE ENRIQUE Stop: 03/27/24 20:59 Last Admin: 02/28/24 08:19 Dose: 1 tab Documented By: Admin: 02/27/24 20:24 Dose: 1 tab Documented By: Admin: 02/27/24 07:50 Dose: 1 tab Documented By: Admin: 02/26/24 21:41 Dose: Not Given Documented By: CASSIE Cyanocobalamin (Cyanocobalamin (B-12) 500 Mcg Tablet) 1,000 mcg PO QPM JOSE ENRIQUE Stop: 03/27/24 20:59 Last Admin: 02/27/24 20:24 Dose: 1,000 mcg Documented By: Admin: 02/26/24 21:41 Dose: Not Given Documented By: CASSIE Enoxaparin Sodium (Enoxaparin Inj 40 Mg/0.4 Ml Syr) 40 mg SQ DAILY JOSE ENRIQUE Stop: 03/28/24 08:59 Last Admin: 02/28/24 08:18 Dose: 40 mg Documented By: Admin: 02/27/24 07:54 Dose: 40 mg Documented By: CMV Fexofenadine HCl (Fexofenadine 60 Mg Tab) 60 mg PO QAM [facility] Stop: 03/28/24 08:59 Last Admin: 02/28/24 08:18 Dose: 60 mg Documented By: Admin: 02/27/24 07:51 Dose: 60 mg Documented By: CMV Potassium Chloride (K Lalo / Wtr) 10 meq in 100 mls @ 100 mls/hr IV Q1H JOSE ENRIQUE Stop: 02/27/24 13:59 Last Infusion: 02/27/24 16:16 Dose: Infused Documented By: Infusion: 02/27/24 14:53 Dose: 100 mls/hr Documented By: Admin: 02/27/24 14:52 Dose: 75 mls/hr Documented By: Infusion: 02/27/24 14:52 Dose: Infused Documented By: Admin: 02/27/24 13:39 Dose: 75 mls/hr Documented By: Infusion: 02/27/24 13:22 Dose: Infused Documented By: Admin: 02/27/24 12:02 Dose: 75 mls/hr Documented By: Infusion: 02/27/24 11:35 Dose: Infused Documented By: Admin: 02/27/24 10:35 Dose: 100 mls/hr Documented By: CMV Sodium Chloride (Nss) 1,000 mls @ 125 mls/hr IV .Q8H ONE Stop: 02/27/24 21:24 Last Infusion: 02/27/24 22:19 Dose: Infused Documented By: LR Admin: 02/27/24 14:17 Dose: 125 mls/hr Documented By: CMV Lactobacillus Acidophilus (Advanced Probiotic 625 Mg Capsule) 1,250 mg PO QAM [facility] Stop: 03/28/24 08:59 Last Admin: 02/28/24 08:18 Dose: 1,250 mg Documented By: Admin: 02/27/24 07:51 Dose: 1,250 mg Documented By: CMV Miscellaneous (Estradiol ~ Order Awaiting Action) 1 each N/A QS [facility] Stop: 03/28/24 00:00 Last Admin: 02/28/24 08:19 Dose: Not Given Documented By: Admin: 02/27/24 23:29 Dose: Not Given Documented By: LR Admin: 02/27/24 17:17 Dose: Not Given Documented By: Admin: 02/27/24 07:53 Dose: Not Given Documented By: Admin: 02/27/24 07:25 Dose: Not Given Documented By: CMV Montelukast Sodium (Montelukast Sodium 10 Mg Tablet) 10 mg PO QAM JOSE ENRIQUE Stop: 03/27/24 19:14 Last Admin: 02/28/24 08:19 Dose: 10 mg Documented By: Admin: 02/27/24 07:51 Dose: 10 mg Documented By: Admin: 02/26/24 21:41 Dose: Not Given Documented By: CASSIE Multivitamins (Multivitamin Tab) 1 tab PO QAM JOSE ENRIQUE Stop: 03/28/24 08:59 Last Admin: 02/28/24 08:19 Dose: 1 tab Documented By: Admin: 02/27/24 07:52 Dose: 1 tab Documented By: CMV Potassium Chloride (Potassium Chloride Crtab 20 Meq Tabcr) 40 meq PO NOW STA Stop: 02/26/24 16:29 Last Admin: 02/26/24 16:52 Dose: 40 meq Documented By: WASHOE Potassium Chloride (Potassium Chloride Crtab 20 Meq Tabcr) 20 meq PO NOW STA Stop: 02/27/24 09:59 Last Admin: 02/27/24 10:35 Dose: 20 meq Documented By: CMV Sodium Chloride (Sodium Chloride 1 Gm Tablet) 1 gm PO BID JOSE ENRIQUE Stop: 03/27/24 21:59 Last Admin: 02/28/24 08:18 Dose: 1 gm Documented By: Admin: 02/27/24 20:25 Dose: 1 gm Documented By: LR Admin: 02/27/24 07:54 Dose: 1 gm Documented By: Admin: 02/26/24 22:17 Dose: Not Given Documented By: CASSIE Medical Decision Making Differential Diagnosis Muscle strain, fracture, dehydration, electrolyte abnormality, cauda equina syndrome, degenerative disc disease, nerve root impingement, intracranial mass or bleed, upper respiratory infection, inner ear infection, vertigo Medical Records Attestation: I reviewed the patient's medical records. Home Medications Current Medication List: was personally reviewed by me Laboratory Data CBC obtained today is unremarkable. Chemistry panel obtained today shows a low sodium of 125, low potassium of 3.0, and low chloride of 90. Normal BUN and creatinine. Normal LFTs. Normal TSH. 02/27/24 08:57 02/28/24 12:18 Lab Results 02/26/24 Range/Units 13:30 WBC 6.26 (4.8-10.8) K/ul RBC 4.90 (4.20-5.40) M/uL Hgb 15.0 (12.0-16.0) g/dl Hct 41.0 (37.0-47.0) % MCV 83.7 (80.0-100.0) fL MCH 30.6 (25.0-34.0) pg MCHC 36.6 H (32.0-36.0) g/dL RDW Std Deviation 34.8 L (36.4-46.3) fL RDW Coeff of Quinton 11.5 (11.5-14.5) % Plt Count 245 (130-400) K/uL MPV 8.0 L (9.4-12.4) fL Immature Gran % (Auto) 0.3 % Neut % (Auto) 67.9 % Lymph % (Auto) 22.0 % Calvert % (Auto) 8.0 % Eos % (Auto) 1.0 % Baso % (Auto) 0.8 % Neut # (Auto) 4.25 (1.40-6.50) K/uL Lymph # (Auto) 1.38 (1.20-3.40) K/uL Calvert # (Auto) 0.50 (0.11-0.59) K/uL Eos # (Auto) 0.06 (0.00-0.50) K/uL Baso # (Auto) 0.05 (0.00-0.20) K/uL Immature Gran # (Auto) 0.02 (0.01-0.20) K/uL Sodium 125 L (136-145) mmol/L Potassium 3.0 L (3.5-5.1) mmol/L Chloride 90 L (98-107) mmol/L Carbon Dioxide 26 (21-32) mmol/L Anion Gap 9 (3-11) BUN 7 (6-23) mg/dl Creatinine 0.59 L (0.6-1.2) mg/dl Est Cr Clr Drug Dosing 75.3 ml/min eGFR 92.76 BUN/Creatinine Ratio 11.9 (10-20) Glucose 109 H (70-99(Fasting)) mg/dl Osmolality 254 L (280-300) mOsm/kg Calcium 8.9 (8.6-10.3) mg/dl Total Bilirubin 1.2 H (0.2-1.0) mg/dl AST 33 (13-39) U/L ALT 31 (7-52) U/L Alkaline Phosphatase 44 (34-104) U/L Troponin I High Sens 6.6 (0-14) pg/ml Total Protein 6.8 (6.0-8.3) gm/dl Albumin 4.0 (3.4-5.0) gm/dl Globulin 2.8 (2.5-4.0) gm/dl Albumin/Globulin Ratio 1.4 (0.9-2) TSH 3.361 (0.300-4.500) uIu/ml Imaging Data My Impression: Chest x-ray obtained today was interpreted by me and read by radiology. No evidence of pneumonia, pulmonary edema, or pleural effusion. Arthritic changes are noted in the spine. Radiologist's Impression: Chest X-Ray 02/26/24 14:33 EXAM: Radiograph of the Chest 1 View INDICATION: Dizziness. TECHNIQUE: Frontal view of the chest. COMPARISON: 02/03/2022 FINDINGS: Lungs and pleural spaces: No consolidation or pulmonary edema. No pleural effusion or pneumothorax. Heart: Shape and configuration within normal limits allowing for technique. Mediastinum: Normal contour. Bones/joints: Degenerative changes noted throughout the spine. No acute osseous abnormality seen. Soft tissues: No abnormality noted. No radiopaque foreign body noted. Upper abdomen: No abnormality noted. IMPRESSION: No acute change noted. ACT 112: Negative or not required by law. Electronically signed by Sinai Giles 02-26-2024 3:03 PM ECG Data Additional Comments: EKG obtained today shows a normal sinus rhythm with a rate of 72. No acute ST or T wave changes are noted. This was reviewed with Dr. Martinez. Blood Pressure Blood Pressure Findings: Normal blood pressure MDM Narrative The patient was evaluated in room D4. Conservative care measures were discussed. Her physical exam suggests SI joint dysfunction as her likely source of discomfort in her right hip. I do not suspect osteoarthritic change or fracture. Further investigation of her dizziness symptoms was also warranted. IV was established. Labs were obtained. EKG and chest x-ray were also obtained. Chest x-ray and EKG were unremarkable. Lab work showed significant hyponatremia. I do not think this can be adequately treated in outpatient setting and admission was recommended. The patient and her are in agreement. The hospitalist service was consulted. Please see that dictation for final management. The patient remained stable while in the ED. Impression & Plan Hyponatremia, Sacroiliac joint dysfunction of right side Admission with management by the hospitalist service for her hyponatremia. SI joint dysfunction can be treated with physical therapy. Care plan was discussed with Dr. Martinez. Discharge Plan Visit Data Chief Complaint: Hip Pain Stated Complaint: RT HIP AND LEG PAIN, DIZZY, LETHARGIC ED Provider: Luis Eduardo Martinez ED Midlevel Provider: Ja Ross Discharge Problem: Hyponatremia, Sacroiliac joint dysfunction of right side Patient Disposition: Admitted As Inpatient Discharge Instructions Interventions: ED Discharge Assessment Last Done: 02/26/24 18:14
[2024-02-26 17:15] LABS: Appearance Urine Clear (Clear); Bilirubin Urine Negative (Negative); Blood Urine Negative (Negative); Color Urine Yellow; Glucose Urine UA Negative (Negative); Ketones Urine 1+ (Negative); Leukocyte Esterase Urine Negative (Negative); Nitrite Urine Negative (Negative); Protein Urine Negative (Negative); Specific Gravity Urine 1.012 (1.000-1.030); Urobilinogen Urine Negative (Negative); pH Urine 7.5 (4.5-7.5)
[2024-02-26 17:33] LABS: BUN Creatinine Ratio 12.1 (10-20); Calcium 8.7 mg/dl (8.6-10.3); Creatinine Clr Calc Pharmacy 67.3 ml/min
[2024-02-26] MEDS: ACETAMINOPHEN 500 MG TAB PO PRN (20:05)
[2024-02-26] MEDS: MONTELUKAST SODIUM 10 MG TABLET PO SCH (21:41)
[2024-02-26] MEDS: CYANOCOBALAMIN (B-12) 500 MCG TABLET PO SCH (21:41)
[2024-02-26] MEDS: CALCIUM 600MG + VIT D 400 IU TAB PO SCH (21:41)
[2024-02-26] MEDS: SODIUM CHLORIDE 1 GM TABLET PO SCH (22:17)
[2024-02-27 07:05] VITALS: RESP 16
[2024-02-27] MEDS: ADVANCED PROBIOTIC 625 MG CAPSULE PO SCH (07:51)
[2024-02-27] MEDS: FEXOFENADINE 60 MG TAB PO SCH (07:51)
[2024-02-27] MEDS: MULTIVITAMIN TAB PO SCH (07:52)
[2024-02-27] MEDS: ENOXAPARIN INJ 40 MG/0.4 ML SYR SQ SCH (07:54)
[2024-02-27] MEDS ORDERED: NON-FORMULARY MEDICATION (Glucosam-Chon-Msm1-C-Mang-Bosw [Osteo Bi-Flex Triple Strength] 7 PO SCH (09:00)
--- NOTE | 2024-02-27 09:14 | Electrocardiogram Report ---
Test Reason : Blood Pressure : */* mmHG Vent. Rate : 72 BPM Atrial Rate : 72 BPM P-R Int : 186 ms QRS Dur : 92 ms QT Int : 434 ms P-R-T Axes : 76 -36 17 degrees QTcB Int : 475 ms Normal sinus rhythm Left axis deviation Left anterior fascicular block Abnormal ECG When compared with ECG of 12-Jun-2020 11:52, Nonspecific T wave abnormality now evident in Inferior leads Confirmed by Suzie Dumont (Alonso) on 02/27/2024 9:14:39 AM Referred By: REFERRED SELF Confirmed By: Suzie Dumont
[2024-02-27 09:28] LABS: Hematocrit (blood only) 41.7 % (37.0-47.0); Hemoglobin 15.4 g/dl (12.0-16.0); Mean Corpuscular Hemoglobin 30.6 pg (25.0-34.0); Mean Corpuscular Hgb Conc 36.9 g/dL (32.0-36.0); Mean Corpuscular Volume 82.7 fL (80.0-100.0); Mean Platelet Volume 8.1 fL (9.4-12.4); Platelet Count 216 K/uL (130-400); RDW Coefficient of Variation 11.5 % (11.5-14.5); RDW Standard Deviation 34.6 fL (36.4-46.3); Red Blood Count 5.04 M/uL (4.20-5.40); White Blood Count 6.12 K/ul (4.8-10.8)
--- NOTE | 2024-02-27 09:47 | XRay Report ---
XR hip RT 2V w pelvis CLINICAL HISTORY: Right hip pain. COMPARISON: CT of the abdomen and pelvis March 10, 2012. FINDINGS: Sacroiliac joints and symphysis pubis are intact. There are no fractures within the pelvis or hips. There are no osseous lesions. Hip joint spaces are preserved. There is mild bilateral hip o steophytosis. There is no radiographic evidence for avascular necrosis of the right femoral head. IMPRESSION: 1. No fractures within the pelvis or hips. 2. Mild bilateral hip osteoarthritis. ACT 112: Negative or not required by law. Electronically signed by: Ras Olivas M.D. 02/27/2024 9:46 AM
[2024-02-27 09:55] LABS: BUN Creatinine Ratio 15.8 (10-20); Calcium 8.7 mg/dl (8.6-10.3); Creatinine Clr Calc Pharmacy 78.3 ml/min; Potassium 2.9 mmol/L (3.5-5.1)
[2024-02-27] MEDS: POTASSIUM CHLORIDE / WTR 10 MEQ/100 ML PLCT IV SCH (10:35)
[2024-02-27] MEDS: POTASSIUM CHLORIDE CRTAB 20 MEQ TABCR PO STA (10:35)
--- NOTE | 2024-02-27 12:35 | Hospitalist Progress Note ---
Date of Service February 27, 2024 Assessment & Plan (1) Hyponatremia: (2) Chronic right hip pain: (3) Osteoarthritis: Plan Hyponatremia - Na: 124 on admit - Patient given 1gm salt tablet at time of admission - Serum Osm: 254, Urine osm: 413 - Potential hypovolemic or euvolemic hyponatremia - 1 L NSS @ 125 ml - Na: 120 upon recheck, Q4H BMP - If sodium continues to drop: fluid restriction, TID salt 1gm tabs - If sodium continues to drop after therapy, consider hypertonic saline drip Chronic R. hip pain/osteoarthritis - Patient endorses prior PT for ostarthritis of R. hip - PT/OT consults to determine need for rehabilitation Admission and Anticipated Discharge Date Admission Date: February 26, 2024 Supervising Physician Co-Signing Physician Notes I personally examined the patient and verified all boss points of history and exam, discussed case, and agree with decision making with Dr Andrew hip pain seems to be doing better. Still fairly weak. Vitals noted, in general she is awake and alert pleasant no distress fatigued. HEENT normocephalic atraumatic mucous membranes moist. Breathing unlabored no accessory muscle use good effort. Skin without rashes pallor or icterus. Hip painseems to be resolving. Likely was arthritis flare. X-ray reassuring. PT/OT eval and treat. Hyponatremiagiven the lower and blood pressures, thiazidelikely hypovolemic hyponatremia with salt wastingbecause of this, initiate IV fluids with saline (followed sodium every 4 hoursinitial drop-down was after she had barely gotten any IV fluids, follow-up 4 hours later shows it to be trending upwards againtherefore will continue fluids and asked night team to follow through the night. Obviously if sodium starts to drop down again while on IV fluids this would be more consistent with a true SIADH picture that would require fluid restriction and salt tabs or oral urea.) DVT proph - lovenox Subjective Cesia A Jury is a 78 y/o F with a past medical history of HLD, fatty liver, osteoporosis, LDD, chronic constipation, and lichen sclerosis admitted due to R. hip pain, fatigue, and dizziness since Tuesday morning. Patient was found to be acutely hyponatremic in the ED. This morning patient endorses that her symptoms are much improved, and feels that her dizziness and fatigue have begun to resolve. Patient endorses that her hip pain is also improving but does endorse some muscle tightness and pain along her R. quadriceps muscle and IT band. Patient is not in acute distress and is hemodynamically stable. Physical Exam Physical Exam: General: patient resting comfortably, NAD, non-toxic in appearance, answers questions appropriately. Skin: warm, dry, intact HEENT: NC/AT, anicteric sclera, conjunctiva without injection, moist mucus membranes. Heart: +S1/S2, regular, no m/r/g Lungs: equal air entry bilaterally, no rales/rhonchi/wheezes Abd: +BS, soft, NT/ND Ext: warm, no clubbing/cyanosis or edema Neuro: nonfocal, speech intact, no facial droop, moving all extremities. Results & Data Results & Data Vital Signs (Past 12 Hours) Vital Signs Temp Pulse Resp BP Pulse Ox O2 Del Method 02/27/24 07:03 36.9 C 78 16 102/65 97 Room Air Resident Activity Tracking Resident Involvement: Resident Care Provided Care Provided: Adult Hospital Medicine
[2024-02-27] MEDS: SODIUM CHLORIDE 0.9% 1,000 ML IV ONE (14:17)
[2024-02-27 15:17] LABS: Calcium 8.4 mg/dl (8.6-10.3); Creatinine Clr Calc Pharmacy 51.9 ml/min; Potassium 3.8 mmol/L (3.5-5.1)
[2024-02-27 18:42] LABS: BUN Creatinine Ratio 13.5 (10-20); Calcium 8.8 mg/dl (8.6-10.3); Creatinine Clr Calc Pharmacy 60.3 ml/min; Potassium 3.7 mmol/L (3.5-5.1)
--- NOTE | 2024-02-27 18:59 | Billing Data ---
Date of Service February 27, 2024 Coding Level of Care Code 00509 SUB INP/OBS CARE MIN
[2024-02-27 22:10] LABS: BUN Creatinine Ratio 15.6 (10-20); Calcium 8.7 mg/dl (8.6-10.3); Creatinine Clr Calc Pharmacy 69.7 ml/min; Potassium 3.6 mmol/L (3.5-5.1)
[2024-02-28 01:19] LABS: BUN Creatinine Ratio 14.3 (10-20); Calcium 8.5 mg/dl (8.6-10.3); Creatinine Clr Calc Pharmacy 70.8 ml/min; Potassium 3.6 mmol/L (3.5-5.1)
[2024-02-28 04:36] LABS: BUN Creatinine Ratio 12.7 (10-20); Calcium 8.4 mg/dl (8.6-10.3); Creatinine Clr Calc Pharmacy 70.8 ml/min; Potassium 3.8 mmol/L (3.5-5.1)
[2024-02-28 07:58] VITALS: BP 116/76; PULSE 76; TEMP 98.2; O2SAT 96
[2024-02-28 09:26] LABS: BUN Creatinine Ratio 13.8 (10-20); Calcium 8.7 mg/dl (8.6-10.3); Creatinine Clr Calc Pharmacy 68.7 ml/min; Potassium 3.6 mmol/L (3.5-5.1)
--- NOTE | 2024-02-28 12:51 | Discharge Summary ---
Date of Service February 28, 2024 Admission HPI Per Admitting Provider 78 yo female with PMH of HLD, Fatty Liver, Osteoporosis, LDD, Chronic constipation and Lichen Sclerosis presents to the hospital with symptoms of fatigue, dizziness and right hip pain. Patient reports these symptoms all started on Jordin in the morning. She does not quite remember the specific time, she just noticed the pain first. Then she felt dizzy and fatigued. Right hip pain radiates down her leg, sharp, moderate intensity. She denies any trauma, injury or sick contacts. She states her dizziness is intermittent and can occur at any time. She states since Tuesday she has not been eating as much, with a low appetite and low energy, casuing her to stay in bed. Patient reports she took the first dose Admission Exam Per Admitting Provider Constitutional: WD/WN, vitals as above Eyes: PERRL, conjunctivae normal, anicteric sclerae ENMT: external ear and nose normal, oropharynx normal Neck: trachea midline, no thyromegaly Respiratory: normal respiratory effort, lungs clear to auscultation Cardiovascular: RRR, no murmur, no edema Gastrointestinal (Abdomen): normal bowel sounds, soft, nontender, no hepatosplenomegaly Musculoskeletal: Extremities: extremities normal to inspection (negative log roll) Skin: no rashes, warm and dry Neurologic: PERRL, EOMI, accommodation nl, no face palsy, no dysarthria Psychiatric: A+Ox3, euthymic affect Lymphatic: no cervical or axillary lymphadenopathy Principal Diagnosis Hyponatremia, weakness Discharge Exam General: patient resting comfortably, NAD, non-toxic in appearance, answers questions appropriately. Skin: warm, dry, intact HEENT: NC/AT, anicteric sclera, conjunctiva without injection, moist mucus membranes. Heart: +S1/S2, regular, no m/r/g Lungs: equal air entry bilaterally, no rales/rhonchi/wheezes Abd: +BS, soft, NT/ND Ext: warm, no clubbing/cyanosis or edema Neuro: nonfocal, speech intact, no facial droop, moving all extremities. Discharge Data Allergies Allergy/AdvReac Type Severity Reaction Status Date / Time ciprofloxacin Allergy Unknown Liver Verified 02/26/24 16:17 issues doxycycline Allergy Unknown UNK Verified 02/26/24 16:17 loratadine Allergy Unknown UNK Verified 02/26/24 16:17 nitrofurantoin Allergy Unknown SHORTNESS Verified 02/26/24 16:17 OF BREATH, COUGH, CHEST TIGHTNESS tetracycline Allergy Unknown UNSURE Verified 02/26/24 16:17 theophylline Allergy Unknown DROWSINESS Verified 02/26/24 16:17 Influenza Virus Vaccines AdvReac Mild red nose, Verified 02/26/24 16:17 crusty nose mometasone furoate AdvReac Mild NOSE BLEEDS Verified 02/26/24 16:17 metronidazole AdvReac Unknown UNK Verified 02/26/24 16:17 [id number] Reductase AdvReac Unknown tingling Verified 02/26/24 16:17 Inhibitor hands [Angooqk-Sxc-Vpt Reductase Inhibitor] Benzonatate CAPS Allergy Unknown thrush Uncoded 02/26/24 16:17 [facility] Allergy Relief TABS AdvReac Unknown Unknown Uncoded 02/26/24 16:17 Nasonex SUSP AdvReac Unknown bLOODY NOSE Uncoded 02/26/24 16:17 Consultations 02/26/24 16:05 ED Decision to Admit Stat Hospital Course (1) Hyponatremia: (2) Chronic right hip pain: (3) Osteoarthritis: Plan Hyponatremia - Na: 124 on admit - Patient given 1gm salt tablet at time of admission - Serum Osm: 254, Urine osm: 413 - Likely hypovolemic hyponatremia - 1 L NSS @ 125 ml - Na: 120 upon recheck, Q4H BMP - Na: 130 after fluid correction and improved oral intake - D/c with BMP ordered to recheck in next few days for improved Na levels Chronic R. hip pain/osteoarthritis - Patient endorses prior PT for ostarthritis of R. hip - PT/OT evaluations, patient with full mobility, mild pain, home exercises discussed Total Time Total Time Spent Total Time Spent (In Minutes): <30 Discharge Plan Discharge Items Patient Disposition: Home - Self-Care Reason For Visit: HYPONATREMIA Discharge Diagnosis: low sodium Activity: Resume your previous activity Non-emergency contact: Primary Care Provider and Specialist Call non-emergency contact if: you have any medication questions and your symptoms worsen Follow-up/Referrals: Maura Capellan DO [Primary Care Provider] - 03/07/24 11:00 am Diet: Regular Addtl Attending Provider Instructions: hip pain - this mostly got better on its own, and fortunately the Xrays did not show any fractures/dislocations (and did show a degree of arthritis) - most likely this was an arthritis flare as it can absolutely cause the kind of pain you were feeling, but also get better without much intervention hyponatremia (low sodium) - this was probably the main reason you were feeling so bad/fatigued/"out of it" and weak - it was most likely a combination of (a) the chlorthalidone (diuretic dr mackay has you on for calcium, but can sometimes make us waste a lot of sodium in our urine) and then (b) a few days where you weren't eating/drinking well (where the chlorthalidone causing salt wasting lessened your margin of error, but the few days you didn't feel good created the "why now") -this is improving nicely - your most recent sodium is up to 130 (your lowest was 120, and normal is 135-145) -given that your numbers are improving, you feel better, and the underlying cause is gone (you'll be off the chlorthalidone, and you're eating and drinking normally) - this should continue to "self correct" (ie there's no specific diet changes you need to do for this) -we'll want you to have labwork (BMP, basic metabolic panel) drawn at the [place] office on or Tuesday to make sure your levels continue to correct / get back to normal once you're out of the hospital and "back in the wild" so to speak -our nurse navigator is working to get you back in with Dr Mackay in the near future - given that we had to stop the chlorthalidone, but you're on it for very "nuanced specialist reasons" the best thing to do will be to have him look things over and decide what best to do next as it relates to the calcium -obviously if you're feeling worse/weaker/not able to eat or drink we'd want you seen again right away (but that seems pretty unlikely given how well you're getting better) Pending Studies at Discharge: No Stand-Alone Forms: My [employer], Smoking Cessation Medications and DC Order Prescriptions: Continued albuterol sulfate 90 mcg/actuation HFA aerosol inhaler 2 puff inhalation Q6H PRN (Reason: shortness of breath or wheezing) Qty: 6.7 1RF Prolia 60 mg/mL syringe 60 mg subcut .Q6 months Qty: 1 1RF Rx Instructions: BUY and BILL approved from 09/17/22-09/16/23 azelastine 137 mcg (0.1 %) aerosol,spray See Rx Instructions .ROUTE .COMPLEX Qty: 90 3RF Dose Instruction: NEEDED FOR RHINITIS USE 1-2 SPRAYS EACH NOSTRIL 1-2 TIMES DAILY.ADMINISTER INTO EACH NOSTRIL. Rx Instructions: NEEDED FOR RHINITIS USE 1-2 SPRAYS EACH NOSTRIL 1-2 TIMES DAILY.ADMINISTER INTO EACH NOSTRIL. estradiol 0.01 % (0.1 mg/gram) cream 1 g PV .COMPLEX Qty: 42.5 5RF Rx Instructions: 1 g vaginally every other day montelukast 10 mg tablet See Rx Instructions .ROUTE .COMPLEX Qty: 90 3RF Dose Instruction: TAKE 1 TABLET BY MOUTH EVERY DAY IN THE MORNING Rx Instructions: TAKE 1 TABLET BY MOUTH EVERY DAY IN THE MORNING Asmanex Twisthaler 220 mcg/ actuation (120) aerosol powdr breath activated See Rx Instructions .ROUTE .COMPLEX Qty: 1 11RF Dose Instruction: INHALE 1 PUFF DAILY RINSE MOUTH AFTER EVERY DOSE WITH WATER Rx Instructions: INHALE 1 PUFF DAILY RINSE MOUTH AFTER EVERY DOSE WITH WATER fexofenadine [[facility] Allergy] 180 mg tablet 60 mg PO QAM (DME) Aerochamber MV Spacer See Rx Instructions .Route Qty: 1 0RF Rx Instructions: As directed One-A-Day Trubiotics 2 billion cell capsule 1 cap PO QAM Metamucil 3.4 gram/5.4 gram powder 2 tsp PO BID naproxen sodium [Aleve] 220 mg capsule 220 mg PO BID PRN (Reason: Pain) triamcinolone acetonide 0.025 % ointment 1 applic topical DAILY PRN (Reason: Skin Irritation) cyanocobalamin (vitamin B-12) [Vitamin B-12] 1,000 mcg Tablet 1,000 mcg PO QPM calcium carbonate-vitamin D3 [Os-Jimmy 500 + D3] 500 mg(1,250mg) -200 unit Tablet 1 tab PO BID One Daily For Women 18-0.4 mg Tablet 1 tab PO QAM omega 2-pjx-nua-fish oil [Fish Oil] 1,000 mg (120 mg-180 mg) Capsule 1 cap PO TID Osteo Bi-Flex Triple Strength 750 mg-644 mg- 30 mg-1 mg Tablet 1 tab PO QAM Discontinued chlorthalidone 25 mg tablet 12.5 mg PO DAILY Qty: 45 3RF Discharge Orders: Discharge Order (Routine); Ordered 02/28/24 Ordered By: Fred Henry Admission Data Admit Date/Time: 02/26/24 16:30 Attending Provider: Fred eHnry Admit Provider: Miguel Ramirez Primary Care Provider: Maura Capellan Other Providers: Miguel Ramirez Other Interventions: Discharge Summary Assessment (RN) Last Done: 02/28/24 13:25 Supervising Physician Co-Signing Physician Notes I personally examined the patient and verified all boss points of history and exam, discussed case, and agree with decision making with Dr Andrew feels well, getting around well. Feels much brighter. Feels up to going home. Vitals noted, in general she is awake and alert pleasant no distress. HEENT normocephalic atraumatic mucous membranes moist. Breathing unlabored no accessory muscle use good effort. Skin without rashes pallor or icterus. Hip painseems to be resolving. Likely was arthritis flare. X-ray reassuring. symptoms have improved. Safe/stable for home. Hyponatremiagiven the lower and blood pressures, thiazidelikely hypovolemic hyponatremia with salt wasting Improved with IV fluids. Safe/stable for homegiven that it probably was salt wasting/hypovolemic hyponatremia and she is now eating and drinking better and off of chlorthalidonesafe for home off of chlorthalidone, and will have a basic metabolic panel checked in 2-3 days to ensure her sodium levels continue to correct. Hypercalciuriaunfortunately had to stop the chlorthalidone. I asked our nurse navigator to facilitate getting her back in with rheumatology for next steps in managing this given how nuanced a situation it is. DVT proph - lovenox
[2024-02-28 13:38] LABS: BUN Creatinine Ratio 15.4 (10-20); Calcium 8.8 mg/dl (8.6-10.3); Creatinine Clr Calc Pharmacy 68.7 ml/min; Potassium 3.7 mmol/L (3.5-5.1)
--- NOTE | 2024-02-28 17:14 | Billing Data ---
Date of Service February 28, 2024 Coding Level of Care Code 31778 IN/OBS DISCH 30 MIN/LESS
== END 2024-02-28 15:00 | disposition home or self-care (01) | DRG 641 ==
LOC: ED 12:14 → EDINP 16:30 → SUATTDRO 16:30 → EDINP 18:14 → 3N 19:08